=== PATIENT | female | born 1975 | race Caucasian/White ===

== ENCOUNTER 2017-02-11 22:02 | Emergency (ER) | payer BC, OTHER ==
[~2017-02-11] VITALS: Ht 160 cm; Wt 63.7 kg
[2017-02-11 22:04] VITALS: BP 159/103; PULSE 76; TEMP 36.6; O2SAT 99; Ht 160 cm; Wt 63.7 kg
[2017-02-11] MEDS ORDERED: CLINDAMYCIN HCL 150 MG CAP PO ONE (22:15)
[2017-02-11] MEDS ORDERED: SULFAMETHOXAZOLE/TRIMETHOPRIM DS 800/160MG TAB PO ONE (22:15)
[2017-02-11] MEDS ORDERED: XYLOCAINE 1%/SOD BICARB 20 ML VIAL INFIL ONE (22:15)
[2017-02-11] MEDS ORDERED: TRAM-10 PO (23:00)
[2017-02-11] MEDS ORDERED: CLIN150C PO (23:01)
[2017-02-11] MEDS ORDERED: SULF800T23 PO (23:01)
--- NOTE | 2017-02-11 23:27 | EMERGENCY ROOM VISIT NOTE ---
ED Visit Note Patient was seen by Dr. Chase. Please refer to his documentation regarding the patient's stay. I was asked to perform an I&D on the patient's right forearm. I examined the patient. Verbal consent was obtained to perform the procedure. After saline and Betadine cleansing and to mL of 1% buffered lidocaine anesthesia, the abscess was incised with a number 11 scalpel blade and 18-gauge sterile needle. It appears that the wound has already been drained prior to me performing the I&D. I do not feel that there is any pus remaining in this pocket as after discussing with the patient appears that it was drained earlier today. The cavity was cleaned. Culture was taken. The abscess cavity was then copiously irrigated with sterile saline under pressure. This is superficial and open to the area I do not believe the packing will be appropriate. The area was cleaned with sterile saline and dressed with bacitracin and a bulky bandage. The patient tolerated the procedure well.
--- NOTE | 2017-02-11 23:56 | EMERGENCY ROOM VISIT NOTE ---
History Report prepared by Shreya: Gudelia Paul Under the Supervision of: Dr. Hermes Chase M.D. First contact with patient: 22:11 Chief Complaint: BITE Stated Complaint: SPIDER BITE ON R ARM History of Present Illness The patient is a 41 year old female who presents to the Emergency Room with complaints of a possible bug bite to her right arm. She first noticed a little pimple on her arm 4-5 days ago. She noticed a small amount of pus that day. Since then, the pimple has grown in size. She is still having some pus draining. She denies any fever, chills, or vomiting. She feels well otherwise. She denies any injury to that arm. 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 She denies any MRSA exposure. She denies any medical problems. She denies any chance of . She denies any prior history of abscess. Source of History: patient Onset: 4-5 days ago Position: arm (right) Quality: other (bug bite) Timing: worsening Associated Symptoms: No fevers, No chills, No vomiting Review of Systems See HPI for pertinent positives & negatives. A total of 10 systems reviewed and were otherwise negative. Past Medical & Surgical Medical Problems: (1) No significant past medical history Family History No pertinent family history stated. Social History Smoking Status: Current Every Day Smoker Occupation Status: employed Current/Historical Medications Scheduled Clindamycin Hcl (Cleocin), 300 MG PO TID Sulfa/Trimethoprim (Bactrim Ds 800MG/160MG), 1 TAB PO BID Scheduled PRN Tramadol (Ultram), 50 MG PO Q6 PRN for Pain Allergies Uncoded Allergies: PCN (Allergy, Unknown, 01/22/03) Physical Exam Vital Signs Date Time Temp Pulse Resp B/P (MAP) Pulse Ox O2 Delivery O2 Flow Rate FiO2 02/11/17 22:04 36.6 76 18 159/103 99 Room Air Physical Exam Constitutional: Vital signs reviewed. Eyes: Pupils are equal round reactive to light. Conjunctiva are noninjected. ENT: Pharynx is clear without erythema or exudate. Mucous membranes are moist. Neck supple without meningeal signs. Respiratory: Clear to auscultation bilaterally. Breath sounds are equal bilaterally. Cardiovascular: Regular rate and rhythm. No rubs or gallops. GI: Soft, nondistended and nontender. Bowel sounds are present. Musculoskeletal: 4cm cutaneous abscess to the dorsal aspect of the distal right forearm. No drainage. Integumentary: As above. Neurological: The patient is awake and alert. No focal deficits. Psychiatric: Normal affect. Medical Decision & Procedures Medications Administered Medications (Trade) Dose Ordered Sig/Pramod Route Start Time Stop Time Status Last Admin Dose Admin Clindamycin HCl (Cleocin Cap) 300 mg NOW ONCE PO 02/11/17 22:15 02/11/17 22:18 DC 02/11/17 22:41 300 MG Trimethoprim/ Sulfamethoxazole (Septra Ds 800/ 160MG Tab) 1 tab NOW ONCE PO 02/11/17 22:15 02/11/17 22:18 DC 02/11/17 22:41 1 TAB ED Course 2212: The patient was evaluated in room C4. A complete history and physical exam was performed. 2215: Ordered Trimethoprim/Sulfamethoxazole 1 tab PO, Cleocin Cap 300 mg PO, Lidocaine HCl 20 ml INFIL. 2241: The abscess I and D was performed by Charlie Valadez PA-C. See his note for details. 2300: Upon reevaluation, the patient was resting comfortably. I discussed tonight's findings with her. I discussed antibiotic use and risk for C diff with her. She verbalized agreement of the treatment plan. She was discharged home. Medical Decision This is a 41-year-old female presents with a cutaneous abscess to her right arm. I did perform a limited focused review of portions of the patient's old chart on the electronic medical record. The patient has had no recent pertinent visits to this hospital. The patient is presenting with a cutaneous abscess to right arm. She is a [employer] and does have potential exposure to MRSA. I did treat her with clindamycin and Bactrim. Her abscess was I&D by NBA Valadez. Please see his dictation for further details. A wound culture was obtained. The patient was discharged with a prescription for clindamycin and Bactrim and given precautions regarding this medication as well as the risk for C. difficile. She will follow up within 48 hours for recheck. Medication Reconcilliation Current Medication List: was personally reviewed by me Blood Pressure Screening Patient's blood pressure: Elevated blood pressure Blood pressure disposition: Referred to PCP Impression Primary Impression: Cutaneous abscess of right upper extremity Scribe Attestation The scribe's documentation has been prepared under my direct and personally reviewed by me in its entirety. I confirm that the note above accurately reflects all work, treatment, procedures, and medical decision making performed by me. Departure Information Dispostion Home / Self-Care Prescriptions Sulfa/Trimethoprim (Bactrim Ds 800MG/160MG) Tab 1 TAB PO BID, #14 TAB Prov: Hermes Chase M.D. 02/11/17 Clindamycin Hcl (CLEOCIN) 150 Mg Cap 300 MG PO TID for 7 Days, #42 CAP Prov: Hermes Chase M.D. 02/11/17 Referrals No Doctor, Assigned (PCP) Forms HOME CARE DOCUMENTATION FORM, IMPORTANT VISIT INFORMATION Patient Instructions ED Abscess [place], My [facility] Additional Instructions You have been examined and treated today on an emergency basis only. This is not a substitute for, or an effort to provide, complete comprehensive medical care. It is impossible to recognize and treat all injuries or illnesses in a single emergency department visit. It is therefore important that you follow up closely with your physician within 48 hours. Call as soon as possible for an appointment. Return for worsening symptoms or if you develop fever, vomiting, or any other concerning symptoms.
== END 2017-02-11 23:12 | disposition home or self-care (01) ==
LOC: C.EDB 22:05 → C.EDC 23:12
DX: L02.419 Cutaneous abscess of limb, unspecified (principal); F17.200 Nicotine dependence, unspecified, uncomplicated; Z79.899 Other long term (current) drug therapy